=== PATIENT | female | born 1990 | race Caucasian/White ===

== ENCOUNTER 2016-09-17 14:15 | Emergency (ER) | payer OTHER ==
[2016-09-17] MEDS ORDERED: CARBAMIDE PEROXIDE 6.5% OTIC DROPS LEFTEAR STA (15:18)
[2016-09-17] MEDS ORDERED: CARBAMIDE PEROXIDE 6.5% OTIC DROPS ONE (15:28)
== END 2016-09-17 16:41 | disposition home or self-care (01) ==
DX: H61.22 Impacted cerumen, left ear (principal)

== ENCOUNTER 2019-05-24 16:35 | Outpatient (CLI) | payer OTHER ==
[2019-05-24] MEDS ORDERED: GADOBUTROL 10 MMOL/10 ML VIAL ONE (16:43)
[2019-05-24] MEDS ORDERED: GADOBUTROL 10 MMOL/10 ML VIAL IVP ONE (17:31)
--- NOTE | 2019-05-25 09:58 | MRI Report ---
Reason: HEADACHE, CONGENITAL MALFORMATION OF OPTIC DISC Procedure Date: 05/24/2019 Accession Number: [id number] / [id number] Procedure: MRI - Brain W/WO CPT Code: Final Report FULL RESULT: EXAM: MRI BRAIN AND ORBITS WITHOUT AND WITH CONTRAST EXAM DATE: 05/24/2019 04:53 PM. CLINICAL HISTORY: Headache, congenital malformation of optic disc. History of migraines. COMPARISON: None. TECHNIQUE: Multiplanar, multisequence T1-weighted and fluid-sensitive MR sequences of the brain were performed before and after administration of intravenous contrast. Sequences optimized for routine and orbit evaluation. Other: None. IV Contrast: 10 mL Gadavist. FINDINGS: Brain Volume: Normal for age. Parenchyma: No acute hemorrhage, mass, or infarct. There are several punctate foci of T2/FLAIR bright white matter signal seen scattered in the cerebral hemispheres. This is slightly greater than expected for age. No cortical signal abnormality is appreciated. No abnormal enhancement. Ventricles/Cisterns: The ventricles, sulci, and cisterns are unremarkable. No abnormal extra-axial fluid collection or hemorrhage. Orbits: Symmetric and unremarkable. The globes, optic nerve sheath complex, extraocular muscles, and orbital fat are unremarkable. The lacrimal glands are symmetric. Sella Turcica: The pituitary gland, cavernous sinuses, suprasellar cistern and optic chiasm are unremarkable. IAC: Symmetric and unremarkable. Vasculature: Normal signal flow void is seen in the major arterial structures at the skull base. The dural sinuses are patent and enhance normally. Sinuses: No acute sinus disease. Bones: No focal pathologic appearing marrow signal changes. Other: The visualized nasopharynx and infratemporal fossa are unremarkable. IMPRESSION: 1. Negative MRI of the brain. No acute abnormality. No infarct, mass, hemorrhage, or abnormal enhancement. 2. Normal MRI of the orbits. 3. There are several scattered punctate foci of T2/FLAIR bright white matter signal noted in the cerebral hemispheres. This is slightly greater than expected for age. This can be seen in patients with migraine headaches or secondary to small vessel ischemia. [facility] The call report notification system was initiated by Dr. Augie Saleh at 08:50 AM on 05/25/2019. The above call report findings were discussed with Dr. Meryl Ureña by Dr. Augie Saleh at 09:34 AM on 05/25/2019.
== END 2019-05-24 16:36 | disposition home or self-care (01) ==
LOC: DI 16:35
PROVIDERS: ATTEND Internal Medicine
DX: G44.52 New daily persistent headache (NDPH) (principal); Q14.2 Congenital malformation of optic disc
CPT/HCPCS: 70553; A9585

== ENCOUNTER 2019-11-05 17:51 | Emergency (ER) | payer OTHER ==
[2019-11-05] MEDS ORDERED: TETANUS/DIPHTHERIA/PERTUSSIS 0.5 ML SYRINGE IM ONE (18:09)
--- NOTE | 2019-11-05 18:09 | ED Physician Documentation ---
History of Present Illness - Stated complaint Stated Complaint: R THUMB LAC - Chief complaint Chief Complaint: Laceration - History obtained from History obtained from: Patient - History of Present Illness Timing: Today Pain level max: 0 Pain level now: 0 - Additonal information Additional information: 29-year-old female presents to the emergency department stating that she accidentally lacerated her right thumb on the dicing tool. Nothing makes it better or worse. She is right-handed. Unknown last tetanus. Review of Systems Constitutional: denies: Fever : denies: Now EGA Skin: denies: Rash PD PAST MEDICAL HISTORY - Past Medical History Past Medical History: No Cardiovascular: None Respiratory: None Endocrine/Autoimmune: None - Past Surgical History Past Surgical History: No - Allergies Allergies/Adverse Reactions: Allergies Allergy/AdvReac Type Severity Reaction Status Date / Time No Known Drug Allergies Allergy Verified 11/05/19 17:57 - Social History Does the pt smoke?: No Smoking Status: Never smoker Does the pt drink ETOH?: No Does the pt have substance abuse?: No - Immunizations Immunizations are current?: No Immunizations: TDAP >10years/unknown - POLST Patient has POLST: No PD ED PE NORMAL - Vitals Vital signs reviewed: Yes - General General: Alert and oriented X 3, No acute distress - HEENT HEENT: Moist mucous membranes - Neck Neck: Supple, no meningeal sign - Derm Derm: Warm and dry, Other (R thumb - laceration to the distal R thumb. NVI. no bleeding. ) - Neuro Neuro: Alert and oriented X 3 Results - Vitals Vitals: Vital Signs - 24 hr 11/05/19 11/05/19 17:57 19:15 Temperature 37 C 37 C Heart Rate 100 85 Respiratory 16 16 Rate Blood Pressure 141/84 H 132/65 H O2 Saturation 100 100 Oxygen O2 Source Room air Procedures - Laceration (location) R thumb Length in cm: 0.5 Wound type: Linear, Superficial, Clean Neurovascular status: Sensory intact, Motor intact, Vascular intact Tendon involvement: Tendon intact Wound Preparation: Irrigated copiously NS Skin layer closure: Dermabond Other: Patient tolerated well, No complications, Neurovascular intact, Tetanus booster given (tdap) Complexity: Simple PD MEDICAL DECISION MAKING - ED course Complexity details: considered differential, d/w patient ED course: Laceration repaired with Dermabond. Tolerated well. No further bleeding. Tdap given. Warnings of infection and instructions on wound care given at bedside. Also counseled on how to minimize scarring. Patient counseled regarding signs and symptoms for which I believe and urgent re-evaluation would be necessary. Patient with good understanding of and agreement to plan and is comfortable going home at this time This document was made in part using voice recognition software. While efforts are made to proofread this document, sound alike and grammatical errors may occur. Departure - Departure Disposition: 01 Home, Self Care Clinical Impression: Finger laceration Qualifiers: Encounter type: initial encounter Finger: unspecified finger Damage to nail status: without damage Foreign body presence: unspecified Laterality: right Qualified Code(s): S61.219A - Laceration without foreign body of unspecified finger without damage to nail, initial encounter Condition: Good Instructions: ED Laceration Hand Follow-Up: Meryl Ureña MD [Primary Care Provider] - As Needed Comments: Follow-up with your doctor as needed for further care. Return if you worsen. Return especially for redness, swelling or drainage from the wound. Do not apply any ointment as this may dissolve the glue. Discharge Date/Time: 11/05/19 19:15
[2019-11-05 19:16] VITALS: BP 132/65
== END 2019-11-05 19:15 | disposition home or self-care (01) ==
LOC: ED 17:51
DX: S61.011A Laceration without foreign body of right thumb without damage to nail, initial encounter (principal); W27.4XXA Contact with kitchen utensil, initial encounter; Y93.G1 Activity, food preparation and clean up; Z23 Encounter for immunization
CPT/HCPCS: 12001; 90471; 99282; 99283

== ENCOUNTER 2023-08-08 08:00 | Outpatient (CLI) | payer OTHER ==
[2023-08-08 23:03] LABS: CHLAMYDIA TRACHOMATIS DNA NEGATIVE (NEGATIVE); NEISSERIA GONORRHOEAE DNA NEGATIVE (NEGATIVE)
[2023-08-08 23:09] LABS: BACTERIAL VAGINOSIS DNA POSITIVE (NEGATIVE); CANDIDA GLABRATA DNA NEGATIVE (NEGATIVE); CANDIDA GROUP DNA NEGATIVE (NEGATIVE); CANDIDA KRUSEI DNA NEGATIVE (NEGATIVE); TRICHOMONAS VAGINALIS DNA NEGATIVE (NEGATIVE)
== END 2023-08-08 23:59 | disposition home or self-care (01) ==
LOC: LAB.WC 08:00
PROVIDERS: ATTEND Nurse Practitioner
DX: L29.8 Other pruritus (principal)
CPT/HCPCS: 81514; 81599; 87491; 87591; 87661

== ENCOUNTER 2023-12-23 07:53 | Outpatient (CLI) | payer OTHER ==
[2023-12-23 12:47] LABS: THYROID STIMULATING HORMONE 2.04 uIU/mL (0.34-5.60)
[2023-12-23 12:49] LABS: CHOL/HDL RATIO 2.8 (<4.4); CHOLESTEROL 158 mg/dL; HDL CHOLESTEROL 56 mg/dL; LDL CHOLESTEROL,CALCULATED 93 mg/dL; LDL/HDL RATIO 1.7 (<4.4); TRIGLYCERIDES 45 mg/dL; VLDL CHOLESTEROL 9 mg/dL
== END 2023-12-23 07:54 | disposition home or self-care (01) ==
LOC: LAB.N 07:53
PROVIDERS: ATTEND Internal Medicine
DX: Z00.00 Encounter for general adult medical examination without abnormal findings (principal); R10.9 Unspecified abdominal pain; Z13.6 Encounter for screening for cardiovascular disorders; N39.0 Urinary tract infection, site not specified
CPT/HCPCS: 36415; 80061; 83721; 84443